=== PATIENT | female | born 1980 | race Caucasian/White ===

== ENCOUNTER 2016-07-24 12:41 | Emergency (ER) | payer OTHER ==
[2016-07-24 13:02] VITALS: RESP 18; TEMP 99.2
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
[2016-07-24 14:35] VITALS: BP 134/78; PULSE 84
== END 2016-07-24 14:35 | disposition home or self-care (01) ==
LOC: EC 12:41
DX: S09.90XA Unspecified injury of head, initial encounter (principal); T14.8 Other injury of unspecified body region; M47.812 Spondylosis without myelopathy or radiculopathy, cervical region; F17.200 Nicotine dependence, unspecified, uncomplicated; Y04.2XXA Assault by strike against or bumped into by another person, initial encounter; Z91.040 Latex allergy status
CPT/HCPCS: 70450; 70486; 72125; 99284

== ENCOUNTER → 2017-11-21 | Outpatient (CLI) | payer OTHER ==
--- NOTE | 2017-11-22 08:37 | MM ---
Reason for exam: additional evaluation requested from abnormal screening. Last mammogram was performed less than 1 month ago. History: Taking hormonal contraceptives for 5 years. Physical Findings: Nurse Summary: 0.5cm nodule in the right breast at 10-11 o'clock and 8 o'clock, a 0.5cm nodule in the left breast at 9 o'clock, 6 o'clock, 12 o'clock and 2 o'clock (nurse kp). MG 3D Work Up W/Cad NIMO Bilateral ML view(s) were taken. Spot compression CC and spot compression MLO view(s) were taken of the right breast. CC with magnification and MLO with magnification view(s) were taken of the left breast. Prior study comparison: November 08, 2017, bilateral MG 3d screening mammo w/cad. October 07, 2005, right diagnostic mammogram w/CAD. Nodularity persits in the right breast. No lesions persists on the left breast. These results were verbally communicated with the patient and result sheet given to the patient on 11/21/17. ASSESSMENT: Incomplete: need additional imaging evaluation, BI-RAD 0 RECOMMENDATION: Ultrasound of both breasts.
--- NOTE | 2017-11-22 08:41 | USB ---
Reason for exam: additional evaluation requested from abnormal screening. History: Taking hormonal contraceptives for 5 years. US Breast Workup NIMO Right breast ultrasound includes all four quadrants, the retroareolar region and axilla. Finding demonstrates a 0.3 x 0.3 x 0.5cm oval, cystic, benign lesion at 1 o'clock and a 0.5 x 0.2 x 0.5cm oval, cystic, benign lesion at 10 o'clock. 1 year follow up diagnostic can be performed given the nodularity on the screening mammogram. On the right palpable at 10-11 o'clock and 8 o'clock no cystic or solid lesion seen. On the left palpable 12 o'clock, 3 o'clock, 6 o'clock periareolar and 8 o'clock periareolar no cystic or solid lesion seen. These results were verbally communicated with the patient and result sheet given to the patient on 11/21/17. ASSESSMENT: Probably benign, BI-RAD 3 RECOMMENDATION: Follow-up diagnostic mammogram of both breasts in 1 year.
== END | disposition home or self-care (01) ==
LOC: RADMAMWWP 14:50
PROVIDERS: ATTEND Obstetrics & Gynecology
DX: R92.8 Other abnormal and inconclusive findings on diagnostic imaging of breast (principal)
CPT/HCPCS: 77066; 76641; G0279

== ENCOUNTER 2019-10-09 09:29 | Emergency (ER) | payer BC, OTHER ==
[2019-10-09 09:35] VITALS: RESP 18
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
[2019-10-09] MEDS ORDERED: IBUPROFEN 600 MG TAB PO STA (11:59)
[2019-10-09 12:16] VITALS: BP 148/98; PULSE 96; TEMP 97.6
== END 2019-10-09 12:26 | disposition home or self-care (01) ==
LOC: EC 09:29
DX: S06.0X1A Concussion with loss of consciousness of 30 minutes or less, initial encounter (principal); S00.03XA Contusion of scalp, initial encounter; R10.9 Unspecified abdominal pain; I10 Essential (primary) hypertension; Z91.040 Latex allergy status; Z87.891 Personal history of nicotine dependence; Y04.0XXA Assault by unarmed brawl or fight, initial encounter
CPT/HCPCS: 99284; 72125; 70486; 70491; 70450; 74177; Q9967

== ENCOUNTER → 2020-10-05 | Outpatient (CLI) | payer BC ==
--- NOTE | 2020-10-06 07:57 | MM ---
Reason for exam: additional evaluation requested from prior study. Last mammogram was performed 2 years and 10 months ago. History: Took hormonal contraceptives for 8 years. Physical Findings: Nurse did not find any significant physical abnormalities on exam. MG Diagnostic Mammo w CAD NIMO Bilateral CC and MLO view(s) were taken. Prior study comparison: November 21, 2017, bilateral MG 3d work up w/cad NIMO. November 08, 2017, bilateral MG 3d screening mammo w/cad. There is chronic nodularity bilaterally. Elongated mass posterior central lower outer quadrant on the left is larger at 15 x 8mm versus 12 x 6mm previously. These results were verbally communicated with the patient and result sheet given to the patient on 10/05/20. ASSESSMENT: Incomplete: need additional imaging evaluation, BI-RAD 0 RECOMMENDATION: Ultrasound of the left breast. (3-6 o'clock)
--- NOTE | 2020-10-06 07:58 | USB ---
Reason for exam: additional evaluation requested from abnormal screening. History: Took hormonal contraceptives for 8 years. US Breast Limited LT Left limited breast ultrasound including focal area of concern, retroareolar and axilla demonstrates no cystic or solid lesion seen. Scanned 3-6 o'clock. 6 month follow up recommended. If the finding continues to change, stereotactic biopsy can be performed at that time. These results were verbally communicated with the patient and result sheet given to the patient on 10/05/20. ASSESSMENT: Probably benign, BI-RAD 3 RECOMMENDATION: Follow-up diagnostic mammogram of the left breast in 6 months.
== END ==
LOC: RADMAMWWP 14:48
PROVIDERS: ATTEND Obstetrics & Gynecology
DX: R92.8 Other abnormal and inconclusive findings on diagnostic imaging of breast (principal); N63.23 Unspecified lump in the left breast, lower outer quadrant
CPT/HCPCS: 77066

== ENCOUNTER 2022-12-31 02:25 | Emergency (ER) | payer BC ==
[2022-12-31 02:30] VITALS: RESP 18; TEMP 98.5
[2022-12-31] MEDS ORDERED: MORPHINE SULFATE 2 MG/ML SYRINGE IVP STA (03:10)
[2022-12-31] MEDS ORDERED: SODIUM CHLORIDE 0.9% 1,000 ML IV STA (03:10)
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
[2022-12-31 07:59] VITALS: BP 124/82; PULSE 80
--- NOTE | 2022-12-31 08:06 | ED ---
General Adult HPI - General Chief complaint: Fall Stated complaint: Fall, head injury Time Seen by Provider: 12/31/22 02:54 Source: patient, EMS, RN notes reviewed, old records reviewed Mode of arrival: EMS Limitations: altered mental status - History of Present Illness Initial comments: She is a 42-year-old female presents emergency Department complaining of a fall. She has a past medical history remarkable for hypertension. Patient was drinking this evening, and was attempted to crawl through a garage window as she locked herself out when she fell backwards. Unknown how far she fell, but was a first floor level window. She the back of her head on cement. Unknown if she lost consciousness. Is not on blood thinners. Denies any scalp pain. Denies any chest pain or shortness of breath. Denies any abdominal pain, nausea, vomiting. Presents EMS for further evaluation at this time. She is not on blood thinners. Low level fall <4 feet. - Related Data Previous Rx's Medication Instructions Recorded Acetaminophen-Codeine 300-30mg 1 tab PO Q4H PRN #10 tablet 07/24/16 [Tylenol #3] Allergies Allergy/AdvReac Type Severity Reaction Status Date / Time latex AdvReac Itching Verified 10/05/20 15:38 Review of Systems ROS Statement: Those systems with pertinent positive or pertinent negative responses have been documented in the HPI. Review of Systems: CONST: Denies fever EYES: Denies blurry vision ENT: Denies nasal congestion C/V: Denies Chest pain RESP: Denies shortness of breath GI: Denies abdominal pain : Denies dysuria SKIN: Denies rash. MSK: Denies joint pain. NEURO: Endorses headache ROS Other: All systems not noted in ROS Statement are negative. Past Medical History Past Medical History: Hypertension History of Any Multi-Drug Resistant Organisms: None Reported Additional Past Surgical History / Comment(s): ectopic Past Psychological History: No Psychological Hx Reported Smoking Status: Former smoker Past Alcohol Use History: Occasional Past Drug Use History: None Reported General Exam - General Exam Comments Initial Comments: General: Appears in no acute distress. HEAD: Normal with no signs of head trauma. Contusion to the superior right parietal scalp. No evidence of skull fracture. Negative pavon sign. Negative raccoon eyes. EYES: PERRLA, EOMI, conjunctiva normal, no discharge. Pupils are 3 mm equal bilaterally. ENT: Hearing grossly intact, normal oropharynx. RESPIRATORY: Clear breath sounds bilaterally. No wheezes, rales, or rhonchi. C/V: Regular rate and rhythm. S1 and S2 auscultated, peripheral pulses 2+ and intact throughout ABD: Abd is soft, nontender, nondistended EXT: Normal range of motion, no obvious deformity SKIN: No rashes or lesions observed on exposed skin. NEURO: Alert and oriented x 4. Cranial nerves II-XII intact. No focal sensory or strength deficits. GCS of 15. NIH of 0. Limitations: altered mental status Course Vital Signs 12/31/22 12/31/22 02:26 07:00 Temperature 98.5 F Pulse Rate 99 80 Respiratory 18 18 Rate Blood Pressure 116/72 124/82 O2 Sat by Pulse 98 99 Oximetry Medical Decision Making - Medical Decision Making Was pt. sent in by a medical professional or institution (, PA, FOOD SERVICES COORDINATOR, urgent care, hospital, or detention...) When possible be specific @ -No Did you speak to anyone other than the patient for history (EMS, parent, family, police, friend...)? What history was obtained from this source @ -No Did you review nursing and triage notes (agree or disagree)? Why? @ -I reviewed and agree with nursing and triage notes Were old charts reviewed (outside hosp., previous admission, EMS record, old EKG, old radiological studies, urgent care reports/EKG's, detention records)? Report findings @ -No old charts were reviewed Differential Diagnosis (chest pain, altered mental status, abdominal pain women, abdominal pain men, vaginal bleeding, weakness, fever, dyspnea, syncope, headache, dizziness, GI bleed, back pain, seizure, CVA, palpatations, mental health, musculoskeletal)? @ -Concussion, intracranial injury, scalp contusion, skull fracture. This list is not all inclusive EKG interpreted by me (3pts min.). @ -None done X-rays interpreted by me (1pt min.). @ -Chest x-ray reveals no obvious acute cardiopulmonary process. No injury. Pelvic x-ray reveals no obvious acute injury. CT interpreted by me (1pt min.). @ -CT brain and C-spine negative for any acute injury, intracranial process. U/S interpreted by me (1pt. min.). @ -None done What testing was considered but not performed or refused? (CT, X-rays, U/S, labs)? Why? @ -None What meds were considered but not given or refused? Why? @ -None Did you discuss the management of the patient with other professionals (toby holguin i.e. , PA, FOOD SERVICES COORDINATOR, lab, RT, psych nurse, social work professor, night warehouse manager, teacher, gift officer, watch caser)? Give summary @ -No Was smoking cessation discussed for >3mins.? @ -No Was critical care preformed (if so, how long)? @ -No Were there social determinants of health that impacted care today? How? (Homelessness, low income, unemployed, alcoholism, drug addiction, transportation, low edu. Level, literacy, decrease access to med. care, custodial, rehab)? @ -No Was there de-escalation of care discussed even if they declined (Discuss DNR or withdrawal of care, Hospice)? DNR status @ -No What co-morbidities impacted this encounter? (DM, HTN, Smoking, COPD, CAD, Cancer, CVA, ARF, Chemo, Hep., AIDS, mental health diagnosis, sleep apnea, morbid obesity)? @ -None Was patient admitted / discharged? Hospital course, mention meds given and route, prescriptions, significant lab abnormalities, going to OR and other pertinent info. @ -Based the patient's presentation and physical exam, I'm concerned for possible intracranial injury for the patient. Patient also does endorse drinking some alcohol this evening but she is clinically sober at this time. We will obtain CT brain, C-spine, chest and pelvis x-rays. Patient was in agreement this plan. I'll signs within acceptable limits. She will be given IV morphine for pain control. She also receive a 1 L fluid bolus. Patient's imaging all negative for any acute injuries or traumatic process. Patient received Toradol for pain control at this time. We did discuss results. Possible she does have a mild concussion. Recommended strict return precautions. She'll be given information on concussion discharge paperwork. She was in agreement with this plan. She'll follow up with PCP in next 2-3 days. I instructed the patient to follow up with their PCP in the next 1-3 days. . I explained that the patient should return to the emergency department if they experience any worsening symptoms. Strict return precautions were discussed with the patient. The patient expressed understanding of these instructions. I answered all questions that the patient had. The patient was discharged home in good condition with their prescriptions and follow up information. Undiagnosed new problem with uncertain prognosis? @ -No Drug Therapy requiring intensive monitoring for toxicity (Heparin, Nitro, Insulin, Cardizem)? @ -No Were any procedures done? @ -No Diagnosis/symptom? @ -Concussion, fall, contusion of scalp Acute, or Chronic, or Acute on Chronic? @ -Acute Uncomplicated (without systemic symptoms) or Complicated (systemic symptoms)? @ -Complicated Side effects of treatment? @ -No Exacerbation, Progression, or Severe Exacerbation? @ -No Poses a threat to life or bodily function? How? (Chest pain, [place], [place], pneumonia, PE, COPD, DKA, ARF, appy, cholecystitis, CVA, Diverticulitis, Homicidal, Suicidal, threat to staff... and all critical care pts) @ -No Disposition Clinical Impression: Fall, Concussion, Contusion of scalp Disposition: HOME SELF-CARE Condition: Good Instructions (If sedation given, give patient instructions): Concussion (ED), Fall Prevention (ED) Is patient prescribed a controlled substance at d/c from ED?: No Referrals: Tripp Mendenhall MD [Primary Care Provider] - 1-2 days Time of Disposition: 07:56
[2022-12-31] MEDS ORDERED: KETOROLAC 15 MG/ML 1 ML VIAL IVP STA (08:08)
--- NOTE | 2022-12-31 08:15 | XR ---
EXAMINATION TYPE: XR chest 1V portable DATE OF EXAM: 12/31/2022 Comparison: None Clinical History: 42-year-old 2-year-old female fall, pain Findings: Heart upper limits of normal in size. Aorta and pulmonary vasculature are within normal limits. Some strandy atelectasis at the right base. Otherwise, no consolidation or pleural effusion. Impression: No acute cardiopulmonary process.
--- NOTE | 2022-12-31 08:16 | XR ---
EXAMINATION TYPE: XR pelvis AP view DATE OF EXAM: 12/31/2022 Comparison: None Clinical History: 42-year-old female fall, pain Findings: SI joints appear symmetric and intact as does the pubic symphysis and both hips. No acute fracture, s ubluxation, or dislocation seen. Impression: No acute osseous abnormality seen..
== END 2022-12-31 08:37 | disposition home or self-care (01) ==
LOC: EC 02:25
DX: S06.0XAA Concussion with loss of consciousness status unknown, initial encounter (principal); M50.222 Other cervical disc displacement at C5-C6 level; I10 Essential (primary) hypertension; Z87.891 Personal history of nicotine dependence; W01.0XXA Fall on same level from slipping, tripping and stumbling without subsequent striking against object, initial encounter
CPT/HCPCS: 72170; 71045; 72125; 70450; 99284; 96374; 96375; 96361; J2270; J1885

== ENCOUNTER → 2023-02-16 | Outpatient (CLI) | payer BC ==
--- NOTE | 2023-02-17 07:31 | MM ---
Reason for Exam: Screening (asymptomatic). Last mammogram was performed 2 year(s) and 4 month(s) ago. Patient History: Menarche at age 11. Patient has no children. Patient used Hormonal Contraceptives for 8 years. Risk Values: Mckenzie 5 year model risk: 0.8%. NCI Lifetime model risk: 10.8%. Prior Study Comparison: 11/08/2017 Bilateral Screening Mammogram, [facility]. 11/21/2017 Bilateral Diagnostic Mammogram, [facility]. 10/05/2020 Bilateral Diagnostic Mammogram, [facility]. Tissue Density: The breast tissue is heterogeneously dense. This may lower the sensitivity of mammography. Findings: Analyzed By CAD. There is no suspicious group of microcalcifications or new suspicious mass in either breast. Stable nodule left breast. Overall Assessment: Benign, BI-RAD 2 Management: Screening Mammogram of both breasts in 1 year. . Patient should continue monthly self-breast exams. A clinical breast exam by your physician is recommended on an annual basis. This exam should not preclude additional follow-up of suspicious palpable abnormalities. Note on Mckenzie scores and lifetime risk: 1. A Mckenzie score greater than 3% is considered moderate risk. If this is the case, consider specialist referral to assess eligibility for a risk reducing agent. 2. If overall lifetime risk for the development of breast cancer is 20% or higher, the patient may qualify for future screening with alternating mammogram and breast MRI. Electronically signed and approved by: Klaus Howell M.D. Radiologis
== END | disposition home or self-care (01) ==
LOC: RADMAMWWP 16:15
PROVIDERS: ATTEND Family Medicine
DX: Z12.31 Encounter for screening mammogram for malignant neoplasm of breast (principal)
CPT/HCPCS: 77063; 77067

== ENCOUNTER 2024-03-11 00:48 | Inpatient (IN) | payer BC ==
[2024-03-12] MEDS ORDERED: ACETAMINOPHEN TAB 325 MG TAB ONE (10:41)
[2024-03-12] MEDS ORDERED: THIAMINE 100 MG TAB ONE ×2 (11:03→20:30)
[2024-03-12] MEDS ORDERED: FOLIC ACID 1 MG TAB ONE (11:03)
[2024-03-12] MEDS ORDERED: MULTIVITAMINS, THERA 1 EACH TAB ONE (11:03)
[2024-03-12] MEDS ORDERED: amLODIPine 5 MG TAB ONE (16:32)
[2024-03-12] MEDS ORDERED: SERTRALINE 25 MG TAB ONE (16:33)
[2024-03-12] MEDS ORDERED: lisinopriL 10 MG TAB ONE (16:33)
[2024-03-12] MEDS ORDERED: traZODone HCL 50 MG TAB ONE (20:30)
[2024-03-12] MEDS ORDERED: FENOFIBRATE 160 MG TAB ONE (23:59)
[2024-03-13] MEDS ORDERED: THIAMINE 100 MG TAB ONE ×2 (08:07→20:18)
[2024-03-13] MEDS ORDERED: FOLIC ACID 1 MG TAB ONE (08:07)
[2024-03-13] MEDS ORDERED: amLODIPine 5 MG TAB ONE (08:07)
[2024-03-13] MEDS ORDERED: MULTIVITAMINS, THERA 1 EACH TAB ONE (08:07)
[2024-03-13] MEDS ORDERED: SERTRALINE 25 MG TAB ONE (08:08)
[2024-03-13] MEDS ORDERED: lisinopriL 10 MG TAB ONE (08:08)
[2024-03-13] MEDS ORDERED: traZODone HCL 50 MG TAB ONE (20:19)
[2024-03-13] MEDS ORDERED: ACETAMINOPHEN TAB 325 MG TAB ONE (21:32)
[2024-03-13] MEDS ORDERED: FENOFIBRATE 160 MG TAB ONE (23:59)
[2024-03-14] MEDS ORDERED: MULTIVITAMINS, THERA 1 EACH TAB ONE (08:12)
[2024-03-14] MEDS ORDERED: amLODIPine 5 MG TAB ONE (08:12)
[2024-03-14] MEDS ORDERED: THIAMINE 100 MG TAB ONE ×2 (08:12→19:59)
[2024-03-14] MEDS ORDERED: SERTRALINE 50 MG TAB ONE (08:12)
[2024-03-14] MEDS ORDERED: FOLIC ACID 1 MG TAB ONE (08:12)
[2024-03-14] MEDS ORDERED: lisinopriL 10 MG TAB ONE (08:13)
[2024-03-14] MEDS ORDERED: traZODone HCL 50 MG TAB ONE (19:59)
[2024-03-14] MEDS ORDERED: ACETAMINOPHEN TAB 325 MG TAB ONE (21:41)
[2024-03-14] MEDS ORDERED: FENOFIBRATE 160 MG TAB ONE (23:59)
[2024-03-15] MEDS ORDERED: MULTIVITAMINS, THERA 1 EACH TAB ONE (08:21)
[2024-03-15] MEDS ORDERED: lisinopriL 10 MG TAB ONE (08:21)
[2024-03-15] MEDS ORDERED: FOLIC ACID 1 MG TAB ONE (08:21)
[2024-03-15] MEDS ORDERED: SERTRALINE 50 MG TAB ONE (08:21)
[2024-03-15] MEDS ORDERED: amLODIPine 5 MG TAB ONE (08:21)
[2024-03-15] MEDS ORDERED: THIAMINE 100 MG TAB ONE (08:21)
[2024-03-15] MEDS ORDERED: ACETAMINOPHEN TAB 325 MG TAB ONE (09:07)
== END 2024-03-15 10:43 | disposition home or self-care (01) | DRG 880 ==
LOC: EC 00:48 → 3MHU 16:45
PROVIDERS: ADMIT Psychiatry & Neurology Psychiatry; ATTEND Psychiatry & Neurology Psychiatry
DX: R45.851 Suicidal ideations (principal); F32.9 Major depressive disorder, single episode, unspecified; I10 Essential (primary) hypertension; E78.5 Hyperlipidemia, unspecified; Y90.7 Blood alcohol level of 200-239 mg/100 ml; F10.129 Alcohol abuse with intoxication, unspecified; F41.9 Anxiety disorder, unspecified; Z91.51 Personal history of suicidal behavior; Z91.040 Latex allergy status
CPT/HCPCS: 80061; 99285

== ENCOUNTER → 2024-08-08 | Outpatient (CLI) | payer BC ==
--- NOTE | 2024-08-08 09:57 | MM ---
Reason for Exam: Screening (asymptomatic). Last mammogram was performed 1 year(s) and 6 month(s) ago. Patient History: Menarche at age 11. Patient has no children. Patient used Hormonal Contraceptives for 8 years. Last menstrual period: 07/29/2024 Risk Values: Mckenzie 5 year model risk: 0.9%. NCI Lifetime model risk: 10.7%. Prior Study Comparison: 11/21/2017 Bilateral Diagnostic Mammogram, [facility]. 10/05/2020 Bilateral Diagnostic Mammogram, [facility]. 02/16/2023 Bilateral MG 3D screening mammo w/cad, [facility]. Tissue Density: The breasts are heterogeneously dense, which may obscure small masses. Findings: Analyzed By CAD. Lobulated circumscribed lesion posteriorly in the left breast is redemonstrated. Benign-appearing right axillary lymph nodes are redemonstrated. There is no suspicious group of microcalcifications or new suspicious mass in either breast. Overall Assessment: Benign, BI-RAD 2 Management: Screening Mammogram of both breasts in 1 year. . Patient should continue monthly self-breast exams. A clinical breast exam by your physician is recommended on an annual basis. This exam should not preclude additional follow-up of suspicious palpable abnormalities. Note on Mckenzie scores and lifetime risk: 1. A Mckenzie score greater than 3% is considered moderate risk. If this is the case, consider specialist referral to assess eligibility for a risk reducing agent. 2. If overall lifetime risk for the development of breast cancer is 20% or higher, the patient may qualify for future screening with alternating mammogram and breast MRI. [facility], , 08/08/2024 9:53 AM. Electronically signed and approved by: Haris Jonas M.D.
== END | disposition home or self-care (01) ==
LOC: RADMAMWWP 08:59
PROVIDERS: ATTEND Family Medicine
DX: Z12.31 Encounter for screening mammogram for malignant neoplasm of breast (principal); R92.333 Mammographic heterogeneous density, bilateral breasts
CPT/HCPCS: 77063; 77067